=== PATIENT | male | born 1970 | race Caucasian/White ===

== ENCOUNTER 2025-05-16 20:45 | Emergency (ER) | payer OTHER, SELFPAY ==
[2025-05-16 20:47] VITALS: BP 147/100
[2025-05-16 21:08] LABS: Hematocrit 45.5 % (39.0-52.0); Hemoglobin 15.5 g/dL (13.0-18.0); Mean Corp Hgb Conc. 34.1 g/dL (33.0-37.0); Mean Corpuscular Volume 92.3 fL (80.0-94.0); Nucleated Red Blood Cells % 0 % (-); Platelet Count 225 10^3/uL (130-400); Red Cell Dist. Width 13.2 % (11.5-14.5)
[2025-05-16 21:31] LABS: Blood Urea Nitrogen 15 mg/dl (9-20); Calcium 8.7 mg/dl (8.4-10.2); Carbon Dioxide 29 mmol/L (22-30); Chloride 104 mmol/L (98-107); Glucose 89 mg/dl (70-99); Potassium 3.8 mmol/L (3.5-5.1); Sodium 140 mmol/L (135-145); eGFR > 60.00
[2025-05-16 22:00] VITALS: BP 155/80
[2025-05-17] VITALS (13 sets, daily range): BP systolic 113–155; BP diastolic 66–100; BMI 24.4
--- NOTE | 2025-05-17 01:26 | ED.GENMED ---
History of Present Illness
General
Chief Complaint: Substance Abuse
Source: patient
Time Seen by Provider: 05/16/25 21:35
History of Present Illness
History of Present Illness:
Note:
CHIEF COMPLAINT(S)
The patient is seeking assistance for chronic substance use.
HISTORY OF PRESENT ILLNESS
The patient is a 54-year-old male with a history of significant substance use spanning 36 years. He reports the use of crack cocaine, which he initially limited to a small quantity on Friday nights but has since escalated to a daily financial
expenditure of approximately $100 to $300 on drugs. He describes a period in which he 'slept like 10 hours' over the past week, indicating severe lifestyle disruption. Recently, the patients drug use has contributed to the dissolution of his 33-year
marriage, leading to divorce and further personal losses.
The patient acknowledges a previous attempt at rehabilitation about seven years ago, which resulted in abstinence for three weeks, or seven weeks if including other factors like employment. He described past treatment contextually as ineffectively
luxurious, which hampered its success. The patient is now motivated to change, despite previously being unrecognized of the drug use priority over significant life aspects. He states he has reached a point where using no longer provides the desired
effects or high, viewing it instead as a financial and personal drain.
The last instance of drug use was struggling to provide the same euphoric experience others depicted receiving, admitting to a decreasing response. Despite attempts to maintain finances for continued usage, the patient experienced routine thoughts
centered more around necessity than enjoyment.
SOCIAL DETERMINANTS AFFECTING HEALTH
The patient lives alone since being removed from his marital home. He acknowledges the role of substance use in his ongoing personal and financial difficulties. He is experiencing the impact of his condition on employment stability and interpersonal
relationships.
SOCIAL HISTORY
The patient admits to occasional cannabis use and identifies as a smoker of tobacco. Alcohol consumption is noted but is described as minimal and casual.
PHYSICAL EXAM
General: Alert, no acute distress.
Skin: Warm, dry.
Head: Normocephalic, atraumatic.
Neck: Supple, trachea midline.
Eye Ears, nose, mouth and throat: Oral mucosa moist.
Cardiovascular: Normal peripheral perfusion, No edema.
Respiratory: Respirations are non-labored.
Gastrointestinal: Abdomen nondistended.
Back: Normal range of motion, Normal alignment.
Musculoskeletal: Normal range of motion, normal strength.
Neurological: Alert and oriented to person, place, time, and situation, No focal neurological deficit observed.
Psychiatric: Cooperative, appropriate mood & affect.
PLAN
The patient will be connected with the [facility] group, which specializes in addiction recovery support, to facilitate entry into a rehabilitation program. Potential follow-up arrangements will be discussed to monitor the patients progress and provide
any further assistance needed.
DIFFERENTIAL DIAGNOSIS
The Differential Diagnosis includes, in no particular order and is not limited to:
1. Substance Use Disorder
2. Depression
3. Anxiety
4. Emotional/Psychological Stress
5. Sleep Disorder
6. Social and Environmental Stressors
7. Alcohol Use Disorder
8. Cannabis Use Disorder
9. Psychological Dependency
10. Attention Deficit Hyperactivity Disorder (ADHD) without hyperactivity
CARE-UPDATE
05/17/25 - 01:50
Recovery specialists will assess the patient at bedside. The patient is in a comfortable resting state.
Disposition:
SUMMARY OF ENCOUNTER
The patient, a 54-year-old male with a long history of substance use, was seen for chronic drug dependence. He had been using crack cocaine daily, with additional occasional use of cannabis and minimal alcohol consumption. His drug use has led to
significant personal and financial issues, including the dissolution of his marriage. The patient was motivated to seek help, reporting no recent euphoric effects from drug use, viewing it as a financial drain. Substance abuse specialists are
currently facilitating his entry into a rehabilitation facility. The patient appears medically stable and comfortable.
ASSESSMENT
The patient is suffering from substance use disorder, particularly cocaine dependence, and cannabis use disorder. There is a need for immediate intervention in the form of rehabilitation to prevent further personal and financial decline.
PLAN
The patient will be connected with the [facility] group to enter a rehabilitation program. Continuous monitoring of the patients progress and additional support measures will be discussed for long-term recovery.
INDEPENDENT REVIEW OF LABS AND INTERPRETATION OF TESTS
- My independent review of CBC is normal.
- My independent review of BMP is normal.
- My independent review indicates that urine and drug screen are positive for cocaine and marijuana.
MEDICAL DECISION MAKING
- Complexity of Data Reviewed: Chronic conditions affecting care including Substance Use Disorder, Depression, Anxiety, Emotional/Psychological Stress, Sleep Disorder, Social and Environmental Stressors, Alcohol Use Disorder, Cannabis Use Disorder,
Psychological Dependency, and ADHD without hyperactivity.
- Data:
Category 1: My independent review of CBC and BMP indicates normal findings. Urine and drug screen are positive for cocaine and marijuana.
- Risk: Prescription drug management was not indicated at this time due to the patients current state and forthcoming rehabilitation placement.
DIAGNOSIS
- F14.20: Cocaine dependence, uncomplicated
- F12.10: Cannabis abuse, uncomplicated
Phy Exam
Physical Exam
Physical Exam:
.
Course
Orders/Labs/Results
Orders:
Orders
05/16/25 20:55
Fentanyl, Urine Urgent
Urine Drug Abuse Screen Urgent
Date Specimen was Collected: 05/16/25
Time Specimen was Collected: 20:51
05/16/25 20:58
Alcohol Urgent
Basic Metabolic Panel Urgent
Complete Blood Count/With Diff Urgent
Abnormal Lab Results
05/16/25 05/16/25
20:55 20:58
MCH 31.4 H pg
(27.0-31.0)
Absolute Monos (auto) 0.9 H 10^3/uL
(0.1-0.6)
Lymphocytes % 19.8 L %
(20.5-51.1)
Monocytes % 10.0 H %
(1.7-9.3)
Urine Cocaine Screen Positive H
(Negative)
U Marijuana (THC) Screen Positive H
(Negative)
05/16/25 20:58
05/16/25 20:58
Vital Signs
Initial and Last Documented VS:
Initial Vital Signs
Temp Pulse Resp BP Pulse Ox
98.2 F 99 16 147/100 98
05/16/25 20:47 05/16/25 20:47 05/16/25 20:47 05/16/25 20:47 05/16/25 20:47
Last Documented Vital Signs
Temp Pulse Resp BP Pulse Ox
98.2 F 64 19 155/80 98
05/16/25 20:47 05/17/25 00:15 05/17/25 00:15 05/17/25 00:09 05/17/25 01:27
*Pulse Oximetry
SaO2: 98
Oxygen Mode of Delivery: Room air
Patient hypoxic: no
*Critical Care Note
Total Time (30-74mins, 75-104mins- exclusive of procedures): Not Applicable
ED Attending Note
-
Portions of this chart may have been created with voice recognition software.� Occasional wrong word or��sound alike� substitutions may have occurred due to the inherent limitations of voice recognition software.
Discharge Plan
Departure
Patient Disposition: Acute Rehab Facility
Date of Disposition: 05/17/25
Time of Disposition: 01:26
Patient with high blood pressure during this ER visit?: No
Discharge Problem:
Cocaine abuse
Instructions: Drug Misuse and Addiction (DC)
Referrals:
NONE,* [Family Provider, Internal Medicine]
Activity Restrictions/Additional Instructions:
Please go directly to rehabilitation as planned
Interventions
Interventions:
*Risk Screen - Suicide Last Done: 05/16/25 20:47
*General Assessment Last Done: 05/16/25 20:47
ED-Psychological Assessment Last Done: 05/17/25 00:17
Discharge Date and Time
Print Language: ARMENIAN
== END 2025-05-17 13:35 ==
LOC: EMR 20:45
PROVIDERS: EMERGENCY PHYSICIAN Emergency Medicine
DX: F14.20 Cocaine dependence, uncomplicated (principal); F12.10 Cannabis abuse, uncomplicated; F17.200 Nicotine dependence, unspecified, uncomplicated; Z59.86 Financial insecurity
CPT/HCPCS: 99283; 80048; 80306; 80307; 82077; 85025